=== PATIENT | male | born 1975 | race Caucasian/White ===

== ENCOUNTER → 2024-04-11 08:06 | Outpatient (REF) | payer OTHER, SELFPAY | LOC: MRI 3T 08:06 | PROVIDERS: ATTENDING PHYSICIAN Orthopaedic Surgery; FAMILY PHYSICIAN Family Medicine | DX: R10.2 Pelvic and perineal pain (principal) | CPT/HCPCS: 72195 ==

== ENCOUNTER 2024-08-19 06:29 | Day surgery (SDC) | payer OTHER, SELFPAY | END 2024-08-19 15:52 | disposition home or self-care (01) | LOC: GI 06:29 | PROVIDERS: ATTENDING PHYSICIAN Internal Medicine | DX: Z12.11 Encounter for screening for malignant neoplasm of colon (principal); K64.8 Other hemorrhoids | CPT/HCPCS: G0121 ==